=== PATIENT | male | born 1955 | race Two or more races ===

== ENCOUNTER 2023-08-13 09:03 | Observation (INO) ==
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
[~2023-08-13 09:03] MED LIST: HEPARIN SOD 5,000 UNIT/0.5 ML VIAL SQ SCH; LACTATED RINGER'S 1,000 ML IV SCH; LIDOCAINE 2% 2 ML VIAL/AMP(20MG/ML) INFIL ONE; LR 15ML/HR IV SCH; MIDAZOLAM HCL 1 MG/ML 2ML VIAL ONE; PROPOFOL IV EMULSION 10 MG/ML 20 ML VIAL IV ONE; ROCURONIUM BROMIDE 10 MG/ML 5 ML VIAL IV ONE; fentaNYL citrate PF 100 MCG/2 ML VIAL ONE
[2023-08-13] MEDS ORDERED: ePHEDrine sulfate 50 MG/ML AMP IV PRN (10:10)
[2023-08-13] MEDS ORDERED: ATROPINE SULFATE 0.1 MG/ML 10ML SYR IV PRN (10:10)
[2023-08-13] MEDS ORDERED: ONDANSETRON INJ 2 MG/ML 2 ML VIAL IV PRN ×2 (10:10→19:46)
--- NOTE | 2023-08-13 11:25 | History & Physical Bridge Note ---
Date of Service August 13, 2023 History & Physical Bridge Note I have examined the patient, reviewed the History & Physical and in the interval since the performance of the History & Physical I have noted the following changes of clinical significance: no changes noted
[2023-08-13] MEDS ORDERED: BUPIVACAINE 0.5 % 5 MG/1 ML MPF 30ML VIAL ONE (13:32)
[2023-08-13] MEDS ORDERED: FLOSEAL HEMOSTATIC MATRIX 10ML TOP ONE (15:05)
[2023-08-13] MEDS ORDERED: SURGICEL ABSORB HEMOSTAT 2IN X 14IN TOP ONE (15:05)
[2023-08-13] MEDS ORDERED: HYDROmorphone INJ 2 MG/ML SYR/VIAL ONE (15:36)
[2023-08-13] MEDS ORDERED: ROCURONIUM BROMIDE 10 MG/ML 5 ML VIAL IV ONE (15:48)
[2023-08-13] MEDS ORDERED: GLYCOPYRROLATE 0.2 MG/ML VIAL ONE (16:34)
[2023-08-13] MEDS ORDERED: NEOSTIGMINE METHYLSULFATE 1 MG/ML 10ML VIAL ONE (16:34)
--- NOTE | 2023-08-13 16:55 | Operative Report ---
[facility] Post Operative Report Pre & Post Diagnosis Operation Date: 08/13/23 10:30 Pre-Op Diagnosis: Prostate Cancer Post-Op Diagnosis: Prostate Cancer I identified the patient and participated in the time-out.: Yes Procedure Operation Date: 08/13/23 10:30 Actual Procedures p Robotic Assisted Laparoscopic Radical Retropubic Prostatectomy, Bilateral Pelvic Lymph Node Dissection(Not Applicable) - Jordan Herzog MD Surgeon Jordan Herzog MD Rat Farmer Madison Butts Estimated Blood Loss 100 Findings Consistent with Post-Op Diagnosis Specimens 1. Periprostatic fat 2. Left pelvic lymph nodes 3. Right pelvic lymph nodes 4. Prostate and seminal vesicles Description of Procedure The patient was identified in the preoperative holding area, appropriate informed consents were reviewed and completed, and he was transported to the operating suite. Subcutaneous heparin was administered in the pre-operative holding area. Upon arrival in the operating suite, he received appropriate antibiotics and general anesthesia. He was positioned in dorsal lithotomy, a B&O suppository was inserted after digital rectal exam, and he was prepped and draped in standard fashion. A Law catheter was inserted in the sterile field. A Veress needle was passed per umbilicus with uniform insufflation of the abdomen to 15mmHg. He was placed in steep Trendelenburg position. A periumbilical incision was then made to accommodate a 12mm Visiport with 10mm 0degree laparoscope. Inspection of the abdomen was carried out, and there was no evidence of traumatic entry or injury secondary to the Veress needle. After confirming a clear anterior abdominal wall, ports were subsequently placed in standard robotic prostatectomy fashion without incident. To begin the robotic portion of the case, the left lateral aspect of the sigmoid was mobilized off of the left pelvic side wall to allow the pouch of Barrett to be appropriately visualized. I then made an incision in the pouch of Barrett, overlying the seminal vesicles. Both SVs as well as the ampullae of the vasa were entirely dissected, with the vasa transected 3cm from the prostate. The medial umbilical ligaments were then controlled with bipolar electrocautery just inferior to the umbilicus. Following cauterization, they were divided utilizing monopolar cautery. A peritoneal incision was carried from this location to the medial aspect of the internal inguinal rings bilaterally with care to avoid opening through the ring. This incision was concluded when the vas deferens was reached. Dissection of the bladder and prostate off of the posterior aspect of the pubic arch was completed allowing full visualization of the prostate. The fat overlying the prostate was removed en bloc and passed off the table as a specimen labeled "periprostatic fat". The endopelvic fascia was cleared during this portion of the procedure, and subsequently opened - first on the right and then the left. The incision through the endopelvic fascia began near the prostate-bladder junction and was carried to the apex with extreme care to preserve all lateral levator musculature as well as the periurethral musculature and sphincter complex. I additionally preserved the puboprostatic ligaments. I then controlled the DVC with a 3-0 V-lock suture in overlapping/figure of 8 fashion. The lymph node dissection was then conducted. External iliac vessels were identified on the pelvic side wall. The packet of fat and lymphatic tissue that resides just under the iliac vein was elevated and off of the vein with a split and roll technique. The packet was dissected laterally to the circumflex vein and distally to the obturator nerve which was preserved. The pr oximal aspect of the packet was carried towards the bifurcation of the iliac vessels. A combination of monopolar and bipolar cautery were used to assist with control. After completing the dissection on both sides, the packets were collected and passed off of the table as specimens labeled "pelvic lymph nodes". My attention then returned to the prostate, with identification of the bladder neck aided by gentle traction on the Law catheter and lateral to medial pressure at the presumed level of the bladder neck with the robotic instruments. An anterior cystotomy was made, the Law balloon deflated and the catheter guided through the incision to allow anterior retraction. I attempted to preserve maximal bladder neck musculature as I circumferentially dissected around the bladder neck. After incision through the posterior aspect of the mucosa, the dissection was carried through detrusor muscle until the bilateral ampullae of the vasa were identified. The previously dissected vasa and SVs were brought through the incision and used to elevated the prostate anteriorly. A posterior plane behind the prostate was then developed - splitting Denonvilliers's fascia. This dissection was carried as far as possible towards the apex as well as far as possible laterally. An incision in the lateral prostatic fascia was then made bilaterally to facilitate control of the vascular pedicles and preservation of the nerve bundles. Vasculature running along the posterior/lateral aspect of the prostate was preserved as well as the tissue containing the nerves. The pedicles were then controlled with a series of Weck clips. The apical attachments of the prostate were remaining at that stage. The DVC was divided after control with bipolar cautery over the prostate. Continuous in spection from anterior and lateral views allowed me to closely follow the apical contour of the prostate and maximally preserve urethral length and tissue. The prostate was entirely freed at that point, and collected in an EndoCatch bag before being moved out of the field of vision. Hemostasis was confirmed and anastomosis of the bladder and urethra was completed utilizing a double armed V- Lock stitch. A new Law catheter was inserted and the anastomosis tested with irrigation. There was no evidence of leak. A lamberto style stitch was placed bilaterally to functionally marsupialize the area of the lymph node dissection. The robot was undocked, the specimen extracted through expansion of the gemini- umbilical camera port. The fascia was closed with a series of 0-PDS figure of 8 stitches. Of note, he has had a prior umbilical hernia repair without mesh. The right assistant research scientist port was closed in two layers - with a figure of 8 0-Vicryl to reapproximate the fascia followed by 4-0 Monocryl to close the skin. Monocryl was used to close all other skin incisions. All wounds were dressed with Dermabond. The case was concluded and the patient taken to the PACU in stable condition. Madison Butts assisted from incision to closure. I attest to the content of the Intraoperative Record and any orders documented therein. Any exceptions are noted below.
[2023-08-13] MEDS ORDERED: PHARMACY GLYCEMIC MGMT CONSULT PRN (16:56)
[2023-08-13] MEDS: fentaNYL citrate PF 100 MCG/2 ML VIAL IV PRN ×4 (17:10→17:40)
[2023-08-13 17:35] LABS: Basophils # (auto) 0.05 K/uL (0.00-0.20); Basophils % (auto) 0.6 %; Eosinophils # (auto) 0.06 K/uL (0.00-0.50); Eosinophils % (auto) 0.7 %; Hematocrit (blood only) 42.6 % (42.0-52.0); Hemoglobin 14.3 g/dl (14.0-18.0); Immature Granulocytes # (auto) 0.03 K/uL (0.01-0.20); Immature Granulocytes % (auto) 0.3 %; Lymphocytes # (auto) 1.14 K/uL (1.20-3.40); Lymphocytes % (auto) 13.2 %; Mean Corpuscular Hemoglobin 29.2 pg (25.0-34.0); Mean Corpuscular Hgb Conc 33.6 g/dL (32.0-36.0); Mean Corpuscular Volume 86.9 fL (80.0-100.0); Mean Platelet Volume 8.6 fL (9.4-12.4); Monocytes # (auto) 0.64 K/uL (0.11-0.59); Monocytes % (auto) 7.4 %; Neutrophils # (auto) 6.69 K/uL (1.40-6.50); Neutrophils % (auto) 77.8 %; Platelet Count 259 K/uL (130-400); RDW Coefficient of Variation 12.2 % (11.5-14.5); RDW Standard Deviation 38.5 fL (36.4-46.3); White Blood Count 8.61 K/ul (4.8-10.8)
[2023-08-13 17:44] LABS: Calcium 8.8 mg/dl (8.6-10.3); Creatinine Clr Calc Pharmacy 145.6 ml/min; Est GFR (African American) 120.6 ml/min; Potassium 3.7 mmol/L (3.5-5.1)
[2023-08-13] MEDS ORDERED: HYDROmorphone INJ 1 MG/ML SYRINGE ONE ×2 (17:58→18:18)
[2023-08-13] MEDS ORDERED: HYDROmorphone INJ 2 MG/ML SYR/VIAL IV PRN (18:01)
[2023-08-13] MEDS ORDERED: MoRPHine SULFATE 2 MG/ML CARP IV PRN (19:46)
[2023-08-13] MEDS ORDERED: MoRPHine SULFATE 4 MG/ML 1 ML CARP\\VIAL IV PRN (19:46)
[2023-08-13] MEDS ORDERED: oxyCODONE HCL IR 5 MG TAB (IMMEDIATE RELEASE) PO PRN (19:46)
[2023-08-13] MEDS: SODIUM CHLORIDE 0.9% 1,000 ML IV SCH (20:10)
[2023-08-13] MEDS ORDERED: DEXTROSE 50% 50 ML SYRINGE IV PRN (21:00)
[2023-08-13] MEDS ORDERED: ATORVASTATIN 40 MG TAB PO SCH (21:00)
[2023-08-13] MEDS ORDERED: GLUCOSE 40% GEL 15 GM TUBE PO PRN (21:00)
[2023-08-13] MEDS ORDERED: GLUCOSE 10 TAB/TUBE PO PRN (21:00)
[2023-08-13] MEDS ORDERED: CARBOHYDRATES FOR HYPOGLYCEMIA PO PRN (21:00)
[2023-08-13] MEDS ORDERED: GLUCAGON FOR INJ 1 MG VIAL IM PRN (21:00)
--- NOTE | 2023-08-13 21:19 | Anesthesiology Progress Note ---
Date of Service August 13, 2023 Anesthesia Post Procedure Vital Signs Vital Signs: Temp Pulse Pulse Resp BP Pulse Ox O2 Del Method 08/13/23 20:16 98.4 F 70 18 135/79 95 Nasal Cannula 08/13/23 20:05 97.9 F 71 18 156/80 H 95 Nasal Cannula 08/13/23 19:40 Nasal Cannula 08/13/23 19:35 97.7 F 62 16 138/75 94 Nasal Cannula 08/13/23 19:10 62 14 134/78 97 Oxymask 08/13/23 19:00 56 L 14 117/65 96 Oxymask 08/13/23 18:50 98.6 F 60 15 129/78 98 Oxymask 08/13/23 18:40 57 L 12 130/70 99 Oxymask 08/13/23 18:30 98.4 F 56 L 14 130/74 98 Oxymask 08/13/23 18:20 98.4 F 48 L 12 123/64 96 Oxymask 08/13/23 18:10 98.4 F 49 L 7 L 107/67 96 Oxymask 08/13/23 18:00 98.4 F 56 L 14 125/75 99 Oxymask 08/13/23 17:50 98.4 F 58 L 16 130/73 98 Oxymask 08/13/23 17:40 58 L 18 119/71 98 Oxymask 08/13/23 17:30 57 L 10 L 129/69 99 Oxymask 08/13/23 17:20 57 L 19 132/71 97 Oxymask 08/13/23 17:10 97.7 F 61 19 116/71 99 Oxymask 08/13/23 17:00 97.7 F 70 14 165/84 H 97 Oxymask 08/13/23 09:29 97.5 F L 62 20 128/74 95 Room Air O2 Flow Rate 08/13/23 20:16 2 08/13/23 20:05 2 08/13/23 19:40 2 08/13/23 19:35 2 08/13/23 19:10 2 08/13/23 19:00 3 08/13/23 18:50 3 08/13/23 18:40 3 08/13/23 18:30 3 08/13/23 18:20 3 08/13/23 18:10 3 08/13/23 18:00 3 08/13/23 17:50 3 08/13/23 17:40 5 08/13/23 17:30 5 08/13/23 17:20 5 08/13/23 17:10 7 08/13/23 17:00 9 08/13/23 09:29 Pain Intensity Abdomen: Pain Intensity: 3 Transfer of Care Handoff Completed per policy Notes Mental Status: alert / awake / arousable and participated in evaluation Patient Amnestic to Procedure: Yes Nausea / Vomiting: adequately controlled Pain: adequately controlled Airway Patency, RR, SpO2: stable & adequate BP & HR: stable & adequate Hydration State: stable & adequate Anesthetic Complications: no major complications apparent and Pt Satisfied with anesthetic care
[2023-08-13] MEDS: INSULIN ASPART PER UNIT CHARGE SC SCH (21:27)
[2023-08-13] MEDS: ceFAZolin 2000MG 2,000 MG/15 ML SYR IV SCH (21:28)
[2023-08-13] MEDS: GABAPENTIN 300 MG CAP PO SCH (21:28)
[2023-08-13] MEDS: CHOLECALCIFEROL 25 MCG (1000 UNITS) TAB PO SCH (21:28)
[2023-08-13] MEDS: ACETAMINOPHEN 325 MG TAB PO SCH (21:28)
[2023-08-13] MEDS: HEPARIN SOD 5,000 UNIT/0.5 ML VIAL SQ SCH (21:29)
[2023-08-13] MEDS: DOCUSATE SODIUM 100 MG CAP PO SCH (21:29)
[2023-08-13] MEDS: LATANOPROST 0.005% OP SOLN 2.5 ML BTL OP SCH (21:29)
[2023-08-14] MEDS: ACETAMINOPHEN 325 MG TAB PO SCH ×4 (01:34→21:13)
[2023-08-14] MEDS ORDERED: INSULIN ASPART PER UNIT CHARGE SC ONE (02:00)
[2023-08-14] MEDS: SODIUM CHLORIDE 0.9% 1,000 ML IV SCH (03:59)
[2023-08-14] MEDS: ceFAZolin 2000MG 2,000 MG/15 ML SYR IV SCH (05:43)
--- NOTE | 2023-08-14 08:15 | Urology Progress Note ---
Date of Service August 14, 2023 Assessment & Plan (1) Prostate cancer: Plan: Postop day #1 status post prostatectomy Recovery on pace Awaiting labs Ambulate Advance diet Likely discharge home later today Admission and Anticipated Discharge Date Admission Date: August 13, 2023 Subjective Doing great today Has been out of bed in his room but not in the hallway Urine clear Abdomen soft Physical Exam Physical Exam: Abdomen soft, incisions appropriate Results & Data Vital Signs (Past 12 Hours) Vital Signs Temp Pulse Resp BP Pulse Ox O2 Del Method O2 Flow Rate 08/14/23 07:17 36.4 C L 75 18 114/66 92 Room Air 08/14/23 05:43 36.3 C L 74 16 123/76 94 Room Air 08/14/23 01:34 36.4 C L 71 18 129/73 96 Nasal Cannula 2 08/13/23 22:28 36.5 C 73 16 138/74 96 Nasal Cannula 2 08/13/23 21:26 36.9 C 69 14 143/79 H 96 Nasal Cannula 2 08/13/23 20:16 36.9 C 70 18 135/79 95 Nasal Cannula 2 PG Care Time/CCT Total # of Minutes Spent Total Time Spent with Patient: Total time spent is greater than 50% in coordination of care (as documented) at patient's floor/unit and/or counseling patient: Coding Level of Care Code None Diagnoses Prostate cancer C61
[2023-08-14] MEDS: ASPIRIN 81 MG ECTAB PO SCH (08:24)
[2023-08-14] MEDS: DOCUSATE SODIUM 100 MG CAP PO SCH ×2 (08:24→21:00)
[2023-08-14] MEDS: GABAPENTIN 300 MG CAP PO SCH ×2 (08:24→21:00)
[2023-08-14] MEDS: CHOLECALCIFEROL 25 MCG (1000 UNITS) TAB PO SCH ×2 (08:24→20:59)
[2023-08-14] MEDS: MULTIVITAMIN TAB PO SCH (08:25)
[2023-08-14] MEDS: HEPARIN SOD 5,000 UNIT/0.5 ML VIAL SQ SCH ×2 (08:25→21:01)
[2023-08-14] MEDS: lisinopril 20 MG TAB PO SCH (08:25)
[2023-08-14] MEDS: LANTUS PER UNIT CHARGE SC SCH (08:34)
[2023-08-14] MEDS: INSULIN ASPART PER UNIT CHARGE SC SCH ×4 (08:35→21:21)
[2023-08-14 08:41] LABS: Basophils # (auto) 0.03 K/uL (0.00-0.20); Basophils % (auto) 0.3 %; Eosinophils # (auto) 0.05 K/uL (0.00-0.50); Eosinophils % (auto) 0.5 %; Hematocrit (blood only) 39.4 % (42.0-52.0); Immature Granulocytes # (auto) 0.03 K/uL (0.01-0.20); Immature Granulocytes % (auto) 0.3 %; Lymphocytes # (auto) 1.32 K/uL (1.20-3.40); Lymphocytes % (auto) 13.6 %; Mean Corpuscular Hemoglobin 29.2 pg (25.0-34.0); Mean Corpuscular Volume 88.5 fL (80.0-100.0); Mean Platelet Volume 8.8 fL (9.4-12.4); Monocytes # (auto) 1.13 K/uL (0.11-0.59); Monocytes % (auto) 11.6 %; Neutrophils # (auto) 7.16 K/uL (1.40-6.50); Neutrophils % (auto) 73.7 %; Platelet Count 235 K/uL (130-400); RDW Coefficient of Variation 12.2 % (11.5-14.5); RDW Standard Deviation 39.7 fL (36.4-46.3); Red Blood Count 4.45 M/uL (4.70-6.10); White Blood Count 9.72 K/ul (4.8-10.8)
[2023-08-14 08:56] LABS: BUN Creatinine Ratio 21.2 (10-20); Calcium 8.3 mg/dl (8.6-10.3); Creatinine Clr Calc Pharmacy 165.2 ml/min; Est GFR (Non-African American) 109.6 ml/min; Potassium 3.7 mmol/L (3.5-5.1)
[2023-08-14 09:00] LABS: Estimated Average Glucose 203 mg/dl; Hemoglobin A1C 8.7 % (4.5-5.6)
[2023-08-14] MEDS: oxyCODONE HCL IR 5 MG TAB (IMMEDIATE RELEASE) PO PRN ×3 (11:27→21:20)
--- NOTE | 2023-08-14 13:03 | Pharmacy Report ---
Pharmacy Glycemic Short Note 2 - Date of Service August 14, 2023 - Glycemic Short BSG Results (Last 24 hours): 08/13/23 08/13/23 08/13/23 17:05 17:13 20:22 Glucose 217 H POC Glucose 225 H 225 H 08/14/23 08/14/23 08/14/23 01:36 07:55 08:10 Glucose 193 H POC Glucose 198 H 204 H 08/14/23 11:41 Glucose POC Glucose 139 H OUTPATIENT ANTIDIABETIC REGIMEN: * Metformin 1g PO BID * Farxiga 10mg PO QAM ASSESSMENT: * 67 yo Male. Postop day #1 status post prostatectomy, discharge planned for later today. * Blood sugars above goal last evening when consulted, only correctional insulin given yesterday, added basal this AM, blood sugar at lunch improved to goal. PLAN FOR INPATIENT GLYCEMIC CONTROL: * Hold outpatient oral diabetes medications * Basal insulin * Lantus 15 units SQ daily * Bolus insulin * NovoLog per scale ACHS or Q6hrs while NPO * Goal Range: Low 110 mg/dL - High 140 mg/dL * Correction Factor: 20 mg/dL/unit * Nutritional / Prandial insulin per carb ratio of 1 unit per 7 grams CHO consumed
[2023-08-14] MEDS: LATANOPROST 0.005% OP SOLN 2.5 ML BTL OP SCH (21:01)
[2023-08-15] MEDS: ACETAMINOPHEN 325 MG TAB PO SCH ×3 (02:17→14:35)
[2023-08-15] MEDS: oxyCODONE HCL IR 5 MG TAB (IMMEDIATE RELEASE) PO PRN ×2 (07:32→14:35)
[2023-08-15 07:34] LABS: Basophils # (auto) 0.05 K/uL (0.00-0.20); Basophils % (auto) 0.5 %; Eosinophils # (auto) 0.08 K/uL (0.00-0.50); Eosinophils % (auto) 0.8 %; Hematocrit (blood only) 39.6 % (42.0-52.0); Hemoglobin 13.4 g/dl (14.0-18.0); Immature Granulocytes # (auto) 0.03 K/uL (0.01-0.20); Immature Granulocytes % (auto) 0.3 %; Lymphocytes # (auto) 1.22 K/uL (1.20-3.40); Lymphocytes % (auto) 12.5 %; Mean Corpuscular Hemoglobin 29.5 pg (25.0-34.0); Mean Corpuscular Hgb Conc 33.8 g/dL (32.0-36.0); Mean Platelet Volume 8.9 fL (9.4-12.4); Monocytes # (auto) 1.06 K/uL (0.11-0.59); Monocytes % (auto) 10.9 %; Neutrophils # (auto) 7.29 K/uL (1.40-6.50); Platelet Count 257 K/uL (130-400); RDW Coefficient of Variation 12.3 % (11.5-14.5); RDW Standard Deviation 39.1 fL (36.4-46.3); Red Blood Count 4.55 M/uL (4.70-6.10); White Blood Count 9.73 K/ul (4.8-10.8)
[2023-08-15 08:09] LABS: BUN Creatinine Ratio 18.2 (10-20); Calcium 8.8 mg/dl (8.6-10.3); Creatinine Clr Calc Pharmacy 156.2 ml/min; Est GFR (African American) 124.1 ml/min; Est GFR (Non-African American) 107.1 ml/min; Potassium 3.6 mmol/L (3.5-5.1)
[2023-08-15] MEDS: lisinopril 20 MG TAB PO SCH (08:37)
[2023-08-15] MEDS: DOCUSATE SODIUM 100 MG CAP PO SCH (08:37)
[2023-08-15] MEDS: CHOLECALCIFEROL 25 MCG (1000 UNITS) TAB PO SCH (08:37)
[2023-08-15] MEDS: GABAPENTIN 300 MG CAP PO SCH (08:37)
[2023-08-15] MEDS: ASPIRIN 81 MG ECTAB PO SCH (08:38)
[2023-08-15] MEDS: MULTIVITAMIN TAB PO SCH (08:38)
[2023-08-15] MEDS: HEPARIN SOD 5,000 UNIT/0.5 ML VIAL SQ SCH (08:38)
[2023-08-15] MEDS: INSULIN ASPART PER UNIT CHARGE SC SCH ×2 (08:52→12:58)
[2023-08-15] MEDS: LANTUS PER UNIT CHARGE SC SCH (08:53)
--- NOTE | 2023-08-15 11:04 | Urology Progress Note ---
Date of Service August 15, 2023 Assessment & Plan (1) Prostate cancer: Plan: Postop day #2 status post prostatectomy Recovery on pace Should be able to be discharged home today Physically seems to be recovering appropriately, trying to build some confidence that he will continue to do well at home Admission and Anticipated Discharge Date Admission Date: August 13, 2023 Subjective Physically seems to be doing quite well Tolerating diet Ambulating Minimal discomfort of his abdomen Urine clear, excellent urine output Labs all appropriate Physical Exam Physical Exam: Incisions appropriate, no signs of infection Clear urine Results & Data Vital Signs (Past 12 Hours) Vital Signs Temp Pulse Resp BP Pulse Ox O2 Del Method 08/15/23 07:55 36.4 C L 70 16 117/73 96 Room Air 08/15/23 07:25 Room Air PG Care Time/CCT Total # of Minutes Spent Total Time Spent with Patient: Total time spent is greater than 50% in coordination of care (as documented) at patient's floor/unit and/or counseling patient: Coding Level of Care Code None Diagnoses Prostate cancer C61
--- NOTE | 2023-08-15 14:04 | Discharge Summary ---
Date of Service August 15, 2023 Admission HPI Per Admitting Provider Patient with prostate cancer here for robotic prostatectomy Admission Exam Per Admitting Provider Constitutional well developed and well nourished Neck neck nontender Respiratory normal respiratory effort; no respiratory distress and does not use accessory muscles Cardiovascular Rate/Rhythm: regular rate Vessels: radial pulses present Extremities: no edema Gastrointestinal (Abdomen) Inspection/Auscultation: abdomen normal to inspection Percussion/Palpation: abdomen soft; abdomen nontender and no guarding Musculoskeletal Head/Neck/Chest: normocephalic and head atraumatic Extremities: extremities normal to inspection Skin no rashes and no lesions Neurologic awake; not obtunded Speech / Cognition: normal speech Motor/Sensory: no tremor Psychiatric Orientation: alert and oriented x 3 Genitourinary no CVA tenderness Lymphatic no lymphadenopathy Principal Diagnosis Prostate cancer Discharge Exam Constitutional well developed and well nourished; no acute distress Respiratory normal respiratory effort; no respiratory distress and no labored breathing Gastrointestinal (Abdomen) Inspection/Auscultation: abdomen normal to inspection Musculoskeletal Head/Neck/Chest: normocephalic Neurologic moves all extremities and awake Psychiatric Orientation: alert and oriented x 3 Genitourinary Law draining clear yellow Discharge Data Allergies Allergy/AdvReac Type Severity Reaction Status Date / Time No Known Allergies Allergy Verified 08/13/23 09:17 Procedures Performed Operation Date: 08/13/23 10:30 Actual Procedures p Robotic Assisted Laparoscopic Radical Retropubic Prostatectomy, Bilateral Pelvic Lymph Node Dissection(Not Applicable) - Jordan Herzog MD Hospital Course (1) Prostate cancer: Plan Postop day #2 status post prostatectomy Afebrile, hemodynamically stable Labs- creatinine 0.55, WBC 9.73 Recovery on pace Law patent and draining clear urine Anticipate home later today with Law catheter Expected clinical course reviewed, all questions answered Follow-up appointments in place Total Time Total Time Spent Total Time Spent (In Minutes): 29 Discharge Plan Discharge Items Patient Disposition: Home - Self-Care Reason For Visit: Prostate Cancer Discharge Diagnosis: Prostate cancer Activity: Per Instructions section Lifting: No more than 25 pounds Bathing Comment: Okay to shower after discharge, no tub bath or soaking Sexual Activity: Wait until after follow-up appointment Exercise/Sports: Wait until after follow-up appointment Driving/Machine Use: No driving while taking prescription pain medication Non-emergency contact: Surgeon and Urologist Call non-emergency contact if: your pain is not controlled, you have a fever, your temperature is above 101, your wound has increased redness, your wound has increased drainage and your wound pain has increased Follow-up/Referrals: Willam Clarke PA-C [Primary Care Provider] - [facility],Nurse [FAKE FOR SCHEDULES] - 08/19/23 10:00 am Diet: Carb Consistent or DM2 Addtl Attending Provider Instructions: Please take all medications as prescribed and keep all follow-ups as scheduled. Please call our office at [phone] with any questions, concerns or need to reschedule appointments for any reason. We are happy to assist you. We have sent an antibiotic to your pharmacy of choice. Please begin antibiotic as prescribed the day BEFORE your scheduled voiding trial at [facility]. Please continue antibiotic every 12 hours through the day AFTER your voiding trial. Activity: We recommend having someone with you for the first few days after surgery to help care for you. For the first 2 weeks after surgery, we would like you to get up and walk around your house. However, we recommend limit physical activity that would increase your heart rate. This will allow your body to rest and heal. Take naps if you feel tired. Don't lift anything heavier than 10 pounds, mow the law or ride a bicycle until your follow-up appointment. Please avoid long car rides. Home Care: Unless directed otherwise, drink 6 to 8 glasses of water a day (enough to keep your urine light colored). This will also help keep a healthy flow of urine. We recommend using a stool softener for the first two weeks to avoid constipation. Law Catheter or Suprapubic Catheter care: Keep the catheter well secured with either a leg back or leg strap with large bag. Empty your bag when it's about half full. You may notice some blood in the bag. This is normal after surgery and while the catheter is in place. Use mild soap (such as Dove or Dial) and water to wash the catheter and the head of your penis daily, or more frequently if needed. Return to your normal diet, we encourage good protein intake to promote healing. You may shower as normal. Please avoid tub baths or soaking until catheter removed and incisions well healed. Wearing sweat pants while you have the catheter is recommended, they will be more comfortable. Follow-up Your follow up appointments for having your catheter removed, and follow up with your physician should already be scheduled. If you have any questions regarding this, please contact our office. Your final pathology report will be discussed at your physician follow-up appointment. Call [facility] at [phone] right away if you have any of the following: Chest pain or trouble breathing (call 911 or go to the hospital) Fever of 101F or higher, uncontrolled vomiting Heavy bleeding, clots, or bright red blood from the catheter Catheter that falls out or stops draining Foul-smelling discharge from your catheter Redness, swelling, warmth, or increased pain at your incision site Drainage, pus, or bleeding from your incision Pending Studies at Discharge: Yes Studies:: Pathology Stand-Alone Forms: My [facility], Pain - Opioid Pain Management, Smoking Cessation Medications and DC Order Prescriptions: New ciprofloxacin HCl 500 mg tablet 500 mg PO BID Qty: 6 0RF Rx Instructions: Start 1 day prior to catheter removal docusate sodium [Colace] 100 mg capsule 100 mg PO BID Qty: 60 0RF Rx Instructions: Take twice daily for 2 weeks, then as needed for constipation. oxycodone-acetaminophen [Percocet] 5-325 mg tablet 1 tab PO TID PRN (Reason: pain) Qty: 10 0RF Rx Instructions: post op pain Continued gabapentin 300 mg capsule 900 mg PO BID metformin 1,000 mg tablet 1,000 mg PO BID Farxiga 10 mg tablet 10 mg PO QAM lisinopril 20 mg tablet 20 mg PO QAM latanoprost 0.005 % drops 1 drp ophthalmic (eye) QPM acetaminophen [Tylenol] 325 mg capsule 325 mg PO QID PRN (Reason: Pain) multivitamin Tablet 1 tab PO QAM cholecalciferol (vitamin D3) 50 mcg (2,000 unit) capsule 50 mcg PO BID omega-3 fatty acids-fish oil [Fish Oil] 360-1,200 mg capsule 1 cap PO QAM aspirin 325 mg tablet 650 mg PO QAM Patient Comments: "stopped this for surgery and started on baby aspirin" garlic 1,000 mg Capsule 1,000 mg PO QAM turmeric root extract 1,053 mg Tablet 1,076 mg PO QAM atorvastatin 40 mg tablet 40 mg PO .COMPLEX Rx Instructions: 40 mg orally every 3 days; aspirin 81 mg Tablet,Delayed Release (Dr/Ec) 81 mg PO DAILY Patient Comments: "stopped my 325 and started baby aspirin for this surgery" magnesium citrate Solution 300 ml PO DAILY PRN (Reason: surgery prep) Patient Comments: "prep for my surgery" Discontinued Fleet Enema 19-7 gram/118 mL Enema 118 ml [place] DAILY PRN (Reason: surgery prep) Patient Comments: "prep for my surgery" Discharge Orders: Discharge Order (Routine); Ordered 08/15/23 Ordered By: Madison Belle/Other Patient Handouts: Radical Prostatectomy, Radical Prostatectomy Dc Admission Data Admit Date/Time: 08/13/23 16:55 Attending Provider: Jordan Herzog Admit Provider: Jordan Herzog Primary Care Provider: Willam Clarke Other Interventions: Discharge Summary Assessment (RN) Last Done: 08/15/23 13:56 Coding Level of Care Code 39216 IN/OBS DISCH 30 MIN/LESS Diagnoses Prostate cancer C61
[2023-08-15] MEDS ORDERED: CHOLECALCIFEROL 25 MCG (1000 UNITS) TAB PO SCH (21:00)
== END 2023-08-15 15:39 | disposition home or self-care (01) ==
LOC: ASU 09:03 → 3N 16:55 → INTOOBSV 16:55